=== PATIENT | male | born 1985 | race Hispanic/Latino ===

== ENCOUNTER 2023-03-05 19:20 | Emergency (ER) | payer OTHER, SELFPAY ==
[~2023-03-05] VITALS: Ht 180.3 cm; Wt 92.9 kg
[2023-03-06] MEDS ORDERED: AMOXICILLIN 500 MG CAP PO ONE (01:35)
[2023-03-06] MEDS ORDERED: AMOX500C PO (01:35)
[2023-03-06] MEDS ORDERED: IBUP-1022 PO (01:35)
[2023-03-06] MEDS ORDERED: IBUPROFEN 600MG TAB PO ONE (01:35)
[2023-03-06 01:38] VITALS: BP 133/81; TEMP 98.3; O2SAT 97
== END 2023-03-06 01:44 | disposition home or self-care (01) ==
LOC: M ED 19:20
DX: J03.90 Acute tonsillitis, unspecified (principal)